=== PATIENT | female | born 1980 | race African-American/Black ===

== ENCOUNTER 2017-06-07 14:12 | Outpatient (CLI) | payer MEDICARE, BC | END 2017-06-07 14:13 | disposition home or self-care (01) | LOC: BICCT 14:12 | PROVIDERS: ATTEND Internal Medicine Gastroenterology | DX: B19.20 Unspecified viral hepatitis C without hepatic coma (principal); R93.3 Abnormal findings on diagnostic imaging of other parts of digestive tract; K80.20 Calculus of gallbladder without cholecystitis without obstruction; N28.1 Cyst of kidney, acquired; N20.0 Calculus of kidney; I70.90 Unspecified atherosclerosis | CPT/HCPCS: 74150 ==